=== PATIENT | female | born 1945 | race African-American/Black ===

== ENCOUNTER 2016-08-14 04:35 | Emergency (ER) | payer MEDICARE ==
[~2016-08-14] VITALS: Ht 149.9 cm; Wt 90.7 kg
[2016-08-14] MEDS ORDERED: ONDANSETRON 4MG/2ML VIAL (J2405) IV ONE (05:00)
[2016-08-14] MEDS ORDERED: MECLIZINE 25 MG TABLET PO ONE (05:00)
[2016-08-14] MEDS ORDERED: INSUDET SC (05:25)
[2016-08-14] MEDS ORDERED: HYDR25TAB PO (05:25)
[2016-08-14] MEDS ORDERED: ASPI1TAB PO (05:25)
[2016-08-14] MEDS ORDERED: AMLO10TA PO (05:25)
[2016-08-14] MEDS ORDERED: LOPR1TAB7 PO (05:25)
[2016-08-14] MEDS ORDERED: PRAV10TA PO (05:25)
[2016-08-14] MEDS ORDERED: ONDANSETRON 4 MG ORAL DISINTEGRATING TAB (S0181) PO ONE (06:00)
[2016-08-14 06:42] LABS: CALCIUM LEVEL 9.2 MG/DL (8.8-10.2); CREATININE FOR GFR 1.19 MG/DL (0.55-1.02); GLOMERULAR FILTRATION RATE 47.7 (>39); POTASSIUM SERUM 3.8 MEQ/L (3.5-5.1)
[2016-08-14] MEDS ORDERED: MECL25CH PO (06:47)
[2016-08-14 07:12] VITALS: BP 142/79
--- NOTE | 2016-08-15 08:58 | ECGEPIP ---
Stationary ECG Study [facility] - ED Test Date: 2016-08-14 Pat Name: BILLIE GALLARDO Department: Room: - Gender: F Net Developer Consultant: juliet : 1945 Requested By: GABRIEL Us Order Number: [id number] Reading MD: Sofiya Britton Measurements Intervals [place] Rate: 68 P: 58 [place]: 184 QRS: -25 QRSD: 118 T: 55 QT: 422 QTc: 451 Interpretive Statements SINUS RHYTHM VOLTAGE CRITERIA FOR LVH POSSIBLE SEPTAL MYOCARDIAL INFARCTION, OF INDETERMINATE AGE, CLINICAL CORRELATION NSTTW ABNORMALITY NO PRIOR FOR COMPARISON Electronically Signed On 08-15-2016 8:58:29 EST by Sofiya Britton
== END 2016-08-14 07:14 | disposition home or self-care (01) ==
LOC: EDBD 04:35 → M ED 06:46
DX: R42 Dizziness and giddiness (principal); E11.9 Type 2 diabetes mellitus without complications; I10 Essential (primary) hypertension; Z79.82 Long term (current) use of aspirin; Z79.4 Long term (current) use of insulin; Z79.84 Long term (current) use of oral hypoglycemic drugs; Z79.899 Other long term (current) drug therapy; Z88.8 Allergy status to other drugs, medicaments and biological substances
CPT/HCPCS: 80048; 93005; 96374; 99284; J2405

== ENCOUNTER 2016-08-16 12:40 | Emergency (ER) | payer MEDICARE, OTHER ==
[~2016-08-16] VITALS: Ht 149.9 cm; Wt 90.7 kg
[~2016-08-16 12:40] MED LIST: AMLO10TA PO; ASPI1TAB PO; HYDR25TAB PO; INSUDET SC; LOPR1TAB7 PO; MECL25CH PO; PRAV10TA PO
[2016-08-16] MEDS ORDERED: MULT1TAB18 PO (12:56)
[2016-08-16] MEDS ORDERED: GLIP5TAB8 PO (12:56)
[2016-08-16 15:40] LABS: BASO % 0.4 % (0.0-1.0); EOS # 0.2 K/mm3 (0.0-0.50); EOS % 1.4 % (0.0-3.0); LARGE UNSTAINED CELL # 0.2 K/mm3 (0.0-0.4); LARGE UNSTAINED CELL % 1.6 % (0.0-4.0); LYMPH # 2.1 K/mm3 (1.5-4.5); LYMPH % 14.4 % (24.0-44.0); MEAN CORPUSCULAR HEMOGLOBIN 29.8 pg (27.0-33.0); MEAN CORPUSCULAR HGB CONC 33.6 g/dl (32.0-36.5); MEAN CORPUSCULAR VOLUME 88.6 fl (80.0-96.0); MONO # 0.5 K/mm3 (0.0-0.8); MONO % 3.2 % (0.0-5.0); NEUTROPHILS # 11.5 K/mm3 (1.8-7.7); PLATELET COUNT, AUTOMATED 310 k/mm3 (150-450); RED CELL DISTRIBUTION WIDTH 12.4 % (11.5-14.5); WHITE BLOOD COUNT 14.5 K/mm3 (4.0-10.0)
[2016-08-16 15:53] LABS: CALCIUM LEVEL 8.7 MG/DL (8.8-10.2); CREATININE FOR GFR 1.41 MG/DL (0.55-1.02); GLOMERULAR FILTRATION RATE 47.6 (>39); POTASSIUM SERUM 4.2 MEQ/L (3.5-5.1)
[2016-08-16] MEDS ORDERED: KEFL500C7 PO (16:20)
[2016-08-16] MEDS ORDERED: MECL-68 PO (16:21)
[2016-08-16] MEDS ORDERED: MUPI2OI EXT (16:28)
[2016-08-16] MEDS ORDERED: CEPHALEXIN 500 MG CAP PO ONE (16:30)
[2016-08-16 16:45] VITALS: BP 160/71
--- NOTE | 2016-08-17 07:32 | REP ---
Dizziness. PRIORS: None. FINDINGS: The superior mediastinal structures are midline. The cardiac silhouette is unremarkable in size, shape, and position. The diaphragmatic surfaces of the lungs are regular, and the costophrenic angles are clear. The pulmonary montalvo are clear. The imaged osseous structures are intact. IMPRESSION: There is no acute cardiopulmonary disease. Signed by Carlo Neal DO 08/17/2016 12:05 P
--- NOTE | 2016-08-17 07:35 | REP ---
Syncope. PRIORS: None. This exam is limited by motion artifact even though multiple scans were repeated. TECHNIQUE: 4.5 mm contiguous transaxial sections were obtained from the skull base to the cerebral convexities with thin cuts through the posterior fossa without the administration of intravenous contrast. FINDINGS: The ventricles and sulci are consistent with the patient's age. There are no extra-axial fluid collections. There is no mass effect. The deep cerebral white matter is consistent with the patient's age. The orbital and petrous structures , cerebellopontine angles, and posterior fossa are unremarkable. The sella turcica, cavernous, and paracavernous structures are essentially unremarkable. The visualized portions of the paranasal sinuses and mastoid air cells are clear. Images of the skull base show no gross abnormality. IMPRESSION: Essentially unremarkable CT examination of the brain. Signed by Carlo Neal DO 08/17/2016 12:05 P
--- NOTE | 2016-08-17 12:25 | ECGEPIP ---
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
== END 2016-08-16 16:53 | disposition home or self-care (01) ==
LOC: M ED 15:24
DX: K13.0 Diseases of lips (principal); R42 Dizziness and giddiness; I10 Essential (primary) hypertension; E11.9 Type 2 diabetes mellitus without complications; Z88.8 Allergy status to other drugs, medicaments and biological substances; Z79.899 Other long term (current) drug therapy; Z79.4 Long term (current) use of insulin